=== PATIENT | female | born 1995 | race Caucasian/White ===

== ENCOUNTER 2018-08-22 17:01 | Emergency (ER) | payer OTHER ==
[2018-08-22 17:10] VITALS: BP 93/72; PULSE 82; TEMP 98.2; BMI 21.2
--- NOTE | 2018-08-22 17:11 | PDOC ---
Rapid Medical Evaluation Time Seen by Provider: 08/22/18 17:06 Medical Evaluation: 08/22/18 17:06 I have performed a brief in-person evaluation of this patient. The patient presents with a chief complaint of: R eyelid pain and swelling Pertinent physical exam findings:? eyelid sty I have ordered the following:nothing The patient will proceed to the ED for further evaluation. Discharge Disposition - Diagnosis Sty Qualifiers: Laterality: right Eyelid: upper Qualified Code(s): H00.011 - Hordeolum externum right upper eyelid - Referrals - Patient Instructions - Post Discharge Activity
[2018-08-22] MEDS ORDERED: ERYTHROMYCIN 0.5% OPHTHALMIC OINTMENT 3.5 GM TUBE OD ONE (17:35)
[2018-08-22] MEDS ORDERED: ERYTHROMYCIN 0.5% OPHTHALMIC OINTMENT 3.5 GM TUBE ONE (17:42)
--- NOTE | 2018-08-22 17:46 | PDOC ---
History of Present Illness - General Chief Complaint: Eye Problem Stated Complaint: Eye Problem Time Seen by Provider: 08/22/18 17:06 History Source: Patient Exam Limitations: No Limitations - History of Present Illness Initial Comments: 08/22/18 17:52 22 yr female with c/o stye to right upper eyelid for 2 days, no fever. Past History - Past Medical History Allergies/Adverse Reactions: Allergies Allergy/AdvReac Type Severity Reaction Status Date / Time No Known Allergies Allergy Verified 08/22/18 17:08 Home Medications: Ambulatory Orders Erythromycin 0.5% Eye Ointment [Erythromycin 0.5% Eye Ointment -] 1 applic OD TID #1 tube 08/22/18 COPD: No - Suicide/Smoking/Psychosocial Hx Smoking History: Never smoked Review of Systems - Review of Systems Able to Perform ROS?: Yes Is the patient limited Pakistani proficient: No Constitutional: No: Symptoms Reported HEENTM: Yes: Symptoms Reported *Physical Exam - Vital Signs Last Vital Signs Temp Pulse Resp BP Pulse Ox 98.2 F 82 18 93/72 100 08/22/18 17:08 08/22/18 17:08 08/22/18 17:08 08/22/18 17:08 08/22/18 17:08 - Physical Exam General Appearance: Yes: Nourished, Appropriately Dressed HEENT: positive: EOMI, ALEXANDRU, Normal ENT Inspection, TMs Normal, Pharynx Normal, Other (right upper eyelid with stye mild redness no drainage, sosa noted ) Moderate Sedation - Procedure Monitoring Vital Signs: Procedure Monitoring Vital Signs Temperature 98.2 F 08/22/18 17:08 Pulse Rate 82 08/22/18 17:08 Respiratory Rate 18 08/22/18 17:08 Blood Pressure 93/72 08/22/18 17:08 O2 Sat by Pulse Oximetry (%) 100 08/22/18 17:08 Medical Decision Making - Medical Decision Making 08/22/18 17:53 cc: stye right upper eyelid will place erythromycin warm moist compresses follow up with the eye doctor as planned *DC/Admit/Observation/Transfer Diagnosis at time of Disposition: Sty Qualifiers: Laterality: right Eyelid: upper Qualified Code(s): H00.011 - Hordeolum externum right upper eyelid - Discharge Dispostion Disposition: HOME Condition at time of disposition: Good - Prescriptions Prescriptions: Erythromycin 0.5% Eye Ointment [Erythromycin 0.5% Eye Ointment -] 1 applic OD TID #1 tube - Referrals Referrals: Acacia Simmons MD [Staff Physician] - - Patient Instructions Printed Discharge Instructions: DI for Hordeolum Additional Instructions: apply frequent warm moist compresses to the eyelid, this will help the stye open up use the eye ointment three times a day for 3-5 days no eye makeup follow with the eye doctor in 2-3 days if no improvement - Post Discharge Activity
== END 2018-08-22 17:52 | disposition home or self-care (01) ==
LOC: JERFT 17:01
DX: H00.011 Hordeolum externum right upper eyelid (principal)
CPT/HCPCS: 99281-25